=== PATIENT | female | born 1995 | race Hispanic/Latino ===

== ENCOUNTER 2019-02-06 17:40 | Emergency (ER) | payer OTHER ==
[~2019-02-06 17:40] MED LIST: CALC600T12 PO; CHOL200074 PO; LISI2.5T2 PO; METF-444 PO; SIMV5TAB58 PO
[2019-02-06 19:22] LABS: HCG,QUAL RESULT NEGATIVE (NEGATIVE)
[2019-02-06 19:26] LABS: BILIRUBIN,URINE Negative (NEGATIVE); COLOR,URINE Yellow (YELLOW); GLUCOSE, URINE (UA) Negative (NEGATIVE); KETONES,URINE Negative (NEGATIVE); LEUKOCYTE ESTERASE ,URINE Moderate (NEGATIVE); NITRATE,URINE Negative (NEGATIVE); OCCULT BLOOD,URINE Negative (NEGATIVE); PH,URINE 6.5 (5.0-8.0); PROTEIN,URINE Negative (NEGATIVE)
[2019-02-06 19:28] LABS: APPEARANCE,URINE HAZY (CLEAR)
[2019-02-06 19:32] LABS: BACTERIA,URINE Few /HPF (None Seen); RBC,URINE None Seen /HPF (0-1)
[2019-02-06] MEDS ORDERED: CEFTRIAXONE SODIUM 1 GM ONE (19:44)
[2019-02-06] MEDS ORDERED: LIDOCAINE HCL-MPF 1% 2ML VIAL ONE (19:44)
[2019-02-06 19:46] LABS: BASOPHILS % (AUTO) 0.9 % (0.0-5.0); EOSINOPHILS % (AUTO) 1.2 % (0.0-8.0); HEMATOCRIT 34.2 % (36-48); LYMPHOCYTES % (AUTO) 20.9 % (21.0-51.0); MEAN CORPUSCULAR HEMOGLOBIN 24.8 pg (27.0-33.0); MEAN CORPUSCULAR VOLUME 75.2 fL (80-100); MONOCYTES % (AUTO) 7.3 % (3.0-13.0); NEUTROPHILS % (AUTO) 69.7 % (40.0-77.0); PLATELET COUNT (AUTO) 361 K/uL (130-400); RED BLOOD CELL COUNT(AUTO) 4.54 MIL/uL (4.00-5.50); RED CELL DISTRIBUTION WIDTH 14.4 % (11.0-15.5)
[2019-02-06 19:55] LABS: CREATININE 0.8 mg/dL (0.5-1.5); POTASSIUM 3.5 mmol/L (3.5-5.1)
== END 2019-02-06 20:30 | disposition home or self-care (01) ==
LOC: EDH 17:40
DX: N39.0 Urinary tract infection, site not specified (principal); E11.9 Type 2 diabetes mellitus without complications; I10 Essential (primary) hypertension
CPT/HCPCS: 36415; 80048; 81001; 81025; 85025; 87077; 87088; 87186; 96372; 99284; J0696; J3490

== ENCOUNTER 2022-02-12 05:41 | Emergency (ER) | payer OTHER ==
[~2022-02-12] VITALS: Ht 162.6 cm; Wt 94.8 kg
[~2022-02-12 05:41] MED LIST changes: +CALC-1125 PO; -CALC600T12 PO; +LISI2.5T13 PO; -LISI2.5T2 PO
[2022-02-12 07:04] LABS: APPEARANCE,URINE Cloudy (CLEAR); BILIRUBIN,URINE Negative (NEGATIVE); COLOR,URINE Yellow (YELLOW); GLUCOSE, URINE (UA) Negative (NEGATIVE); KETONES,URINE Negative (NEGATIVE); LEUKOCYTE ESTERASE ,URINE Large (NEGATIVE); NITRATE,URINE Negative (NEGATIVE); OCCULT BLOOD,URINE Small (NEGATIVE); PH,URINE 6.5 (5.0-8.0); PROTEIN,URINE Trace mg/dL (NEGATIVE)
[2022-02-12 07:16] LABS: RBC,URINE None Seen /HPF (0-1)
[2022-02-12 07:17] LABS: BACTERIA,URINE Few /HPF (None Seen)
[2022-02-12] MEDS ORDERED: CEPH500B PO (08:54)
[2022-02-12] MEDS ORDERED: PHEN-847 PO (08:54)
[2022-02-12] MEDS ORDERED: CEFTRIAXONE 1G VIAL IM SCH (09:00)
[2022-02-12] MEDS ORDERED: PHENAZOPYRIDINE HCL 200 MG TABLET PO SCH (09:00)
[2022-02-12 09:14] VITALS: BP 124/76
== END 2022-02-12 09:19 | disposition home or self-care (01) ==
LOC: EDH 05:41
DX: N39.0 Urinary tract infection, site not specified (principal); F41.0 Panic disorder [episodic paroxysmal anxiety]; E11.9 Type 2 diabetes mellitus without complications; Z98.890 Other specified postprocedural states; Z79.84 Long term (current) use of oral hypoglycemic drugs; Z79.899 Other long term (current) drug therapy
CPT/HCPCS: 81001; 81025; 87077; 87088; 87186; 96372; 99283; J0696

== ENCOUNTER 2022-10-06 13:41 | Emergency (ER) | payer OTHER ==
[~2022-10-06] VITALS: Ht 162.6 cm; Wt 91.2 kg
[~2022-10-06 13:41] MED LIST changes: +CEPH500B PO; +PHEN-847 PO
[2022-10-06] MEDS ORDERED: CYCL10TA16 PO (14:37)
[2022-10-06 14:52] VITALS: BP 128/82
[2022-10-06] MEDS ORDERED: CYCLOBENZAPRINE HCL 10 MG TABLET PO SCH (15:00)
== END 2022-10-06 14:56 | disposition home or self-care (01) ==
LOC: EDH 13:41
DX: M62.830 Muscle spasm of back (principal); M54.50 Low back pain, unspecified; E11.9 Type 2 diabetes mellitus without complications